=== PATIENT | male | born 1930 | race Caucasian/White ===

== ENCOUNTER 2016-10-29 18:49 | Inpatient (IN) | payer MEDICARE, OTHER ==
[~2016-10-29] VITALS: Ht 177.8 cm; Wt 71.0 kg
[2016-10-30 00:56] LABS: PH,URINE 6.5 (5.0 - 9.0); URINE BILIRUBIN NEGATIVE (NEGATIVE); URINE BLOOD NEGATIVE (NEGATIVE); URINE GLUCOSE (UA) NORMAL (NORMAL); URINE KETONE NEGATIVE (NEGATIVE); URINE LEUKOCYTE ESTERASE TRACE (NEGATIVE); URINE NITRATE NEGATIVE (NEGATIVE); URINE PROTEIN TRACE (NEGATIVE); UROBILINOGEN NORMAL mg/dL (<1.0)
[2016-10-30 01:02] LABS: URINE RBC 0-5 /[HPF] (0-2); URINE WBC 0-5 /[HPF] (0-3)
[2016-10-30 01:03] LABS: URINE MUCUS TRACE
[2016-10-30 06:53] LABS: HEMATOCRIT 31.9 % (40-51); HEMOGLOBIN 9.9 g/dL (13.7-17.5); MEAN CORPUSCULAR HEMOGLOBIN 26.2 pg (27.0-33.0); MEAN CORPUSCULAR VOLUME 84.4 fL (79-92); MEAN PLATELET VOLUME 10.6 fl (7.5-11.5); RED BLOOD COUNT 3.78 x10_6/uL (4.6-6.1); RED CELL DISTRIBUTION WIDTH 19.2 % (11.6-14.4); WHITE BLOOD COUNT 10.9 x10_3/uL (4.2-9.1)
[2016-10-30 07:12] LABS: ALBUMIN 2.4 gm/dL (3.4-5.0); ALKALINE PHOSPHATASE 40 U/L (50-136); ALT/SGPT 14 U/L (7.53-40.17); AST/SGOT 17 U/L (6.66-35.34); BILIRUBIN,TOTAL 0.58 mg/dL (0.0-1.0); BLOOD UREA NITROGEN 27 mg/dL (7-18); CALCIUM 8.5 mg/dL (8.7-10.7); CARBON DIOXIDE 22 mmol/L (21-32); CREATININE 0.8 mg/dL (0.6-1.3); GLUCOSE,RANDOM 87 mg/dL (70-99); POTASSIUM 3.8 mmol/L (3.5-5.1); SODIUM 144 mmol/L (136-145); TOTAL PROTEIN 4.6 gm/dL (6.4-8.2)
[2016-11-02 11:22] LABS: URINE BILIRUBIN NEGATIVE (NEGATIVE); URINE BLOOD NEGATIVE (NEGATIVE); URINE GLUCOSE (UA) NORMAL (NORMAL); URINE KETONE NEGATIVE (NEGATIVE); URINE LEUKOCYTE ESTERASE NEGATIVE (NEGATIVE); URINE NITRATE NEGATIVE (NEGATIVE); URINE PROTEIN NEGATIVE (NEGATIVE); UROBILINOGEN NORMAL mg/dL (<1.0)
[2016-11-03 07:24] LABS: HEMATOCRIT 34.7 % (40-51); MEAN CORPUSCULAR HEMOGLOBIN 26.8 pg (27.0-33.0); MEAN CORPUSCULAR HGB CONC 31.7 g/dL (32.0-36.0); MEAN CORPUSCULAR VOLUME 84.4 fL (79-92); MEAN PLATELET VOLUME 10.8 fl (7.5-11.5); RED BLOOD COUNT 4.11 x10_6/uL (4.6-6.1); WHITE BLOOD COUNT 10.4 x10_3/uL (4.2-9.1)
[2016-11-03 07:42] LABS: BLOOD UREA NITROGEN 22 mg/dL (7-18); CALCIUM 8.1 mg/dL (8.7-10.7); CARBON DIOXIDE 26 mmol/L (21-32); CREATININE 0.9 mg/dL (0.6-1.3); GLUCOSE,RANDOM 70 mg/dL (70-99); POTASSIUM 3.3 mmol/L (3.5-5.1); SODIUM 144 mmol/L (136-145)
[2016-11-06 06:42] LABS: HEMOGLOBIN 12.4 g/dL (13.7-17.5); MEAN CORPUSCULAR HEMOGLOBIN 26.6 pg (27.0-33.0); MEAN CORPUSCULAR HGB CONC 31.8 g/dL (32.0-36.0); MEAN CORPUSCULAR VOLUME 83.7 fL (79-92); MEAN PLATELET VOLUME 10.6 fl (7.5-11.5); RED BLOOD COUNT 4.66 x10_6/uL (4.6-6.1); RED CELL DISTRIBUTION WIDTH 20.4 % (11.6-14.4)
[2016-11-06 06:45] LABS: BLOOD UREA NITROGEN 14 mg/dL (7-18); CALCIUM 8.8 mg/dL (8.7-10.7); CARBON DIOXIDE 30 mmol/L (21-32); GLUCOSE,RANDOM 110 mg/dL (70-99); POTASSIUM 3.1 mmol/L (3.5-5.1); SODIUM 143 mmol/L (136-145)
[2016-11-07 06:38] LABS: HEMATOCRIT 37.6 % (40-51); HEMOGLOBIN 11.9 g/dL (13.7-17.5); MEAN CORPUSCULAR HEMOGLOBIN 26.3 pg (27.0-33.0); MEAN CORPUSCULAR HGB CONC 31.6 g/dL (32.0-36.0); MEAN CORPUSCULAR VOLUME 83.2 fL (79-92); MEAN PLATELET VOLUME 10.8 fl (7.5-11.5); RED BLOOD COUNT 4.52 x10_6/uL (4.6-6.1); RED CELL DISTRIBUTION WIDTH 20.4 % (11.6-14.4); WHITE BLOOD COUNT 12.2 x10_3/uL (4.2-9.1)
[2016-11-07 08:08] LABS: BLOOD UREA NITROGEN 13 mg/dL (7-18); CALCIUM 8.3 mg/dL (8.7-10.7); CARBON DIOXIDE 25 mmol/L (21-32); CREATININE 1.1 mg/dL (0.6-1.3); GLUCOSE,RANDOM 103 mg/dL (70-99); POTASSIUM 3.3 mmol/L (3.5-5.1); SODIUM 141 mmol/L (136-145)
[2016-11-08 02:26] LABS: URINE BILIRUBIN NEGATIVE (NEGATIVE); URINE BLOOD TRACE (NEGATIVE); URINE GLUCOSE (UA) NORMAL (NORMAL); URINE KETONE 1+ (NEGATIVE); URINE LEUKOCYTE ESTERASE 1+ (NEGATIVE); URINE NITRATE POSITIVE (NEGATIVE); URINE PROTEIN TRACE (NEGATIVE); UROBILINOGEN NORMAL mg/dL (<1.0)
[2016-11-08 03:07] LABS: URINE BACTERIA 1+ (NONE SEEN); URINE RBC 0-5 /[HPF] (0-2); URINE SQUAMOUS EPITHELIAL CELL 0-10 /[HPF] (NONE SEEN)
[2016-11-08 07:41] LABS: INR 1.3 (0.9-1.1); PARTIAL THROMBOPLASTIN TIME 29.1 SECONDS (21.3-29.3)
[2016-11-08 14:55] LABS: HEMATOCRIT 40.7 % (40-51); HEMOGLOBIN 13.1 g/dL (13.7-17.5); MEAN CORPUSCULAR HEMOGLOBIN 26.7 pg (27.0-33.0); MEAN CORPUSCULAR HGB CONC 32.2 g/dL (32.0-36.0); MEAN CORPUSCULAR VOLUME 83.1 fL (79-92); MEAN PLATELET VOLUME 10.1 fl (7.5-11.5); RED BLOOD COUNT 4.9 x10_6/uL (4.6-6.1); WHITE BLOOD COUNT 14.2 x10_3/uL (4.2-9.1)
[2016-11-08 15:29] LABS: ALKALINE PHOSPHATASE 47 U/L (50-136); ALT/SGPT 9 U/L (7.53-40.17); AST/SGOT 15 U/L (6.66-35.34); BILIRUBIN,TOTAL 0.73 mg/dL (0.0-1.0); BLOOD UREA NITROGEN 12 mg/dL (7-18); CALCIUM 9.2 mg/dL (8.7-10.7); CARBON DIOXIDE 30 mmol/L (21-32); CREATINE KINASE 41 U/L (35-232); CREATININE 1.2 mg/dL (0.6-1.3); GLUCOSE,RANDOM 114 mg/dL (70-99); POTASSIUM 3.8 mmol/L (3.5-5.1); SODIUM 139 mmol/L (136-145); TOTAL PROTEIN 5.4 gm/dL (6.4-8.2)
[2016-11-09 05:23] LABS: HEMATOCRIT 41.4 % (40-51); HEMOGLOBIN 12.9 g/dL (13.7-17.5); MEAN CORPUSCULAR HEMOGLOBIN 26.6 pg (27.0-33.0); MEAN CORPUSCULAR HGB CONC 31.2 g/dL (32.0-36.0); MEAN CORPUSCULAR VOLUME 85.4 fL (79-92); MEAN PLATELET VOLUME 11.3 fl (7.5-11.5); RED BLOOD COUNT 4.85 x10_6/uL (4.6-6.1); RED CELL DISTRIBUTION WIDTH 21.1 % (11.6-14.4); WHITE BLOOD COUNT 16.7 x10_3/uL (4.2-9.1)
[2016-11-09 05:39] LABS: BLOOD UREA NITROGEN 11 mg/dL (7-18); CALCIUM 9.2 mg/dL (8.7-10.7); CARBON DIOXIDE 18 mmol/L (21-32); CREATININE 1.2 mg/dL (0.6-1.3); GLUCOSE,RANDOM 97 mg/dL (70-99); SODIUM 143 mmol/L (136-145)
[2016-11-09 05:40] LABS: MAGNESIUM 1.7 mg/dL (1.8-2.4)
[2016-11-09 05:46] LABS: ARTERIAL BLD GAS O2 SATURATION 93.4 % (94-98); ARTERIAL BLOOD GAS BASE EXCESS 0.9 mmol/L (-2.0-3.0); ARTERIAL BLOOD GAS HCO3 22.8 mmol/L (22-26); ARTERIAL BLOOD GAS PCO2 28.7 mmHg (35-48); ARTERIAL BLOOD GAS pH 7.51 (7.35-7.45)
[2016-11-09 05:47] LABS: POTASSIUM 4.5 mmol/L (3.5-5.1)
[2016-11-09 07:32] LABS: CKMB 1.4 ng/ml (0.0-5.0)
[2016-11-09 07:36] LABS: TROP-I < 0.30 NG/ML (0.00-0.30)
[2016-11-09 08:20] LABS: ARTERIAL BLD GAS O2 SATURATION 89.4 % (94-98); ARTERIAL BLOOD GAS BASE EXCESS -0.2 mmol/L (-2.0-3.0); ARTERIAL BLOOD GAS HCO3 24.2 mmol/L (22-26); ARTERIAL BLOOD GAS PCO2 40.6 mmHg (35-48); ARTERIAL BLOOD GAS pH 7.39 (7.35-7.45)
== END 2016-11-09 09:55 | disposition other institution (70) | DRG 557 ==
LOC: SWING 18:49
PROVIDERS: Family Medicine; ADMIT Family Medicine
PROC: 05H533Z Insertion of Infusion Device into Right Subclavian Vein, Percutaneous Approach (ICD-10-PCS; principal; 2016-11-09)
DX: M62.50 Muscle wasting and atrophy, not elsewhere classified, unspecified site (principal); J18.9 Pneumonia, unspecified organism; I63.9 Cerebral infarction, unspecified; J69.0 Pneumonitis due to inhalation of food and vomit; G40.009 Localization-related (focal) (partial) idiopathic epilepsy and epileptic syndromes with seizures of localized onset, not intractable, without status epilepticus; K57.32 Diverticulitis of large intestine without perforation or abscess without bleeding; I50.32 Chronic diastolic (congestive) heart failure; J44.9 Chronic obstructive pulmonary disease, unspecified; R41.0 Disorientation, unspecified; Z51.89 Encounter for other specified aftercare; I25.10 Atherosclerotic heart disease of native coronary artery without angina pectoris; I48.91 Unspecified atrial fibrillation; R10.9 Unspecified abdominal pain; R11.2 Nausea with vomiting, unspecified; I95.1 Orthostatic hypotension; R63.0 Anorexia; R47.81 Slurred speech; R53.1 Weakness; I73.9 Peripheral vascular disease, unspecified; Z88.2 Allergy status to sulfonamides; Z79.899 Other long term (current) drug therapy; Z83.3 Family history of diabetes mellitus; Z82.49 Family history of ischemic heart disease and other diseases of the circulatory system; Z80.9 Family history of malignant neoplasm, unspecified; Z79.01 Long term (current) use of anticoagulants; Z79.82 Long term (current) use of aspirin; Z95.1 Presence of aortocoronary bypass graft; Z95.5 Presence of coronary angioplasty implant and graft; I25.2 Old myocardial infarction; E78.5 Hyperlipidemia, unspecified; I11.0 Hypertensive heart disease with heart failure; E03.9 Hypothyroidism, unspecified; Z86.73 Personal history of transient ischemic attack (TIA), and cerebral infarction without residual deficits; K21.9 Gastro-esophageal reflux disease without esophagitis; E87.6 Hypokalemia; G47.00 Insomnia, unspecified; K59.00 Constipation, unspecified
CPT/HCPCS: 36415; 36556; 36600; 70450; 71010; 71250; 80048; 80053; 80198; 81001; 81003; 82550; 82553; 82803; 82962; 83735; 83880; 84132; 85610; 85730; 87070; 87086; 92950; 93005; 94002; 94640; 94664; 97110; 97116; 97530; 97535; 99070; J2250; J3360; J3370; J7030; J7040; J7050